=== PATIENT | male | born 1955 ===

== ENCOUNTER 2017-10-14 07:14 | Emergency (ER) | payer OTHER ==
[2017-10-14 07:14] VITALS: BMI 22.2
[2017-10-14] MEDS ORDERED: Acetaminophen-Codeine 300/30 mg Tab PO STA (08:21)
[2017-10-14] MEDS ORDERED: Tmp-Smz 800 mg-160 mg DS Tab PO STA (08:24)
[2017-10-14] MEDS ORDERED: Acetaminophen-Codeine 300/30 mg Tab PO ONE (08:27)
[2017-10-14] MEDS ORDERED: Tmp-Smz 800 mg-160 mg DS Tab ONE (08:28)
[2017-10-14] MEDS ORDERED: Tmp-Smz 800 mg-160 mg DS Tab PO SCH (08:30)
--- NOTE | 2017-10-14 08:39 | C.PDOC ---
History Of Present Illness 62 y/o male with PMHx of DM, HTN, BPH and hypothyroidism presents to ED with complaints of itching rash and tenderness to right scalp area for 3 days. Patient states rash developed first and after scratching, area became swollen and irritated, reports he took Ibuprofen with no relief. Patient reports constant pain and denies nausea, vomiting, fever o any other complaints at this time. Time Seen by Provider: 10/14/17 08:04 Chief Complaint (Nursing): Headache History Per: Patient History/Exam Limitations: no limitations Onset/Duration Of Symptoms: Days Current Symptoms Are (Timing): Still Present Past Medical History Reviewed: Historical Data, Nursing Documentation, Vital Signs Vital Signs: Last Vital Signs Temp 97.8 F 10/14/17 08:59 Pulse 65 10/14/17 08:59 Resp 18 10/14/17 08:59 BP 144/78 10/14/17 08:59 Pulse Ox 99 10/14/17 08:59 - Medical History PMH: Anemia, Diabetes, HTN, Hypercholesterolemia, Hypothyroidism Surgical History: No Surg Hx - [facility] Procedures COLONOSCOPY (07/28/14) Family History: States: No Known Family Hx - Social History Hx Tobacco Use: No Hx Alcohol Use: No Hx Substance Use: No - Immunization History Hx Tetanus Toxoid Vaccination: No Hx Influenza Vaccination: No Hx Pneumococcal Vaccination: No Review Of Systems Constitutional: Negative for: Fever, Chills Gastrointestinal: Negative for: Nausea, Vomiting Skin: Positive for: Rash Neurological: Negative for: Weakness, Numbness Physical Exam - Physical Exam Appears: Non-toxic, No Acute Distress Skin: Warm, Dry Head: Tenderness (to right scalp), Swelling (mild to Right parietal region) Eye(s): bilateral: Normal Inspection Oral Mucosa: Moist Neck: Normal ROM, Supple Cardiovascular: Rhythm Regular Respiratory: Normal Breath Sounds, No Rales, No Rhonchi, No Wheezing Gastrointestinal/Abdominal: Soft, No Tenderness, No Guarding, No Rebound Extremity: Normal ROM, Capillary Refill (<2 seconds) Neurological/Psych: Oriented x3 ED Course And Treatment O2 Sat by Pulse Oximetry: 100 (RA) Pulse Ox Interpretation: Normal Medical Decision Making Medical Decision Making: Assessment: Cellulites Disposition Counseled Patient/Family Regarding: Diagnosis, Need For Followup - Disposition Referrals: Zenon Rivas MD [Staff Provider] - Disposition: HOME/ ROUTINE Disposition Time: 08:38 Condition: FAIR Additional Instructions: follow up with your doctor in 2 days call to make an appointment take medications as prescribed return to ER if symptoms worsens or progress Prescriptions: Acetaminophen/Codeine [Tylenol/Codeine 300 MG/30 MG] 1 tab PO Q6H PRN #12 tab PRN Reason: Pain, Severe (8-10) Cephalexin [Keflex] 500 mg PO QID #40 capsule Sulfamethoxazole/Trimethoprim [Bactrim DS 800 mg-160 mg] 1 tab PO BID #14 tab Instructions: Cellulitis (ED) Forms: [facility] (Georgian), General Discharge Instructions - Clinical Impression Clinical Impression: Cellulitis - Scribe Statement The provider has reviewed the documentation as recorded by the Maricruzibsarahy Bright All medical record entries made by the Leonel were at my direction and personally dictated by me. I have reviewed the chart and agree that the record accurately reflects my personal performance of the history, physical exam, medical decision making, and the department course for this patient. I have also personally directed, reviewed, and agree with the discharge instructions and disposition.
[2017-10-14 09:01] VITALS: BP 144/78; PULSE 65; RESP 18; TEMP 97.8
[2017-10-14 09:41] VITALS: O2SAT 100
== END 2017-10-14 09:00 | disposition home or self-care (01) ==
LOC: C.ER 07:14
DX: L03.811 Cellulitis of head [any part, except face] (principal); E11.9 Type 2 diabetes mellitus without complications

== ENCOUNTER 2017-10-16 05:59 | Emergency (ER) | payer OTHER ==
[2017-10-16 05:59] VITALS: BMI 22.2
[2017-10-16 06:23] VITALS: O2SAT 100
--- NOTE | 2017-10-16 08:19 | C.PDOC ---
History Of Present Illness 62 yo male w/PMHx of NIDDM come in for re-evaluation of painful lesions to scalp gradually developed for past 1 week. Pt sts, was seen here few days ago when received Rx: Keflex, Bactrim, Tylenol #3 w/o significant improvement in sx. Pt mostly c/o throbbing pain over the lesions, " unable to sleep". Otherwise , pt denies fever, chills, previous hx of head trauma, denies dizziness, visual changes, focal deficits, neck pain, CP, SOB, dyspnea, diaphoresis, palpitation, abd. pain, N/V, denies weakness, sensory or vascular deficits to B/L UEs and LE. Ambulate to Ed for evaluation, not in nay apparent distress. Time Seen by Provider: 10/16/17 07:14 Chief Complaint (Nursing): Abnormal Skin Integrity History Per: Patient Past Medical History Reviewed: Historical Data, Nursing Documentation, Vital Signs Vital Signs: Last Vital Signs Temp 97.8 F 10/16/17 06:13 Pulse 79 10/16/17 06:13 Resp 20 10/16/17 06:13 BP 161/68 H 10/16/17 06:13 Pulse Ox 100 10/16/17 09:29 - Medical History PMH: Anemia, Diabetes, HTN, Hypercholesterolemia, Hypothyroidism Denies: Chronic Kidney Disease - [facility] Procedures COLONOSCOPY (07/28/14) Family History: States: Unknown Family Hx - Social History Hx Tobacco Use: No Hx Alcohol Use: No Hx Substance Use: No - Immunization History Hx Tetanus Toxoid Vaccination: No Hx Influenza Vaccination: No Hx Pneumococcal Vaccination: No Review Of Systems Except As Marked, All Systems Reviewed And Found Negative. Constitutional: Negative for: Fever, Chills Eyes: Negative for: Vision Change ENT: Negative for: Ear Discharge, Nose Discharge Cardiovascular: Negative for: Chest Pain, Palpitations, Light Headedness Respiratory: Negative for: Cough Gastrointestinal: Negative for: Nausea, Vomiting, Abdominal Pain, Diarrhea Genitourinary: Negative for: Incontinence Musculoskeletal: Negative for: Neck Pain, Back Pain Skin: Positive for: Lesions Neurological: Positive for: Headache. Negative for: Weakness, Numbness, Altered Mental Status, Dizziness Physical Exam - Physical Exam Appears: Well, Non-toxic, No Acute Distress Skin: Normal Color, Warm, Dry Head: Normacephalic, Other (Right parietal scalp small 1cm diameter erosive lesionsassocaited with mild scalp erythema and edema, No discharges, no flactulance.) Eye(s): bilateral: PERRL Ear(s): Bilateral: Normal Nose: No Flaring, No Discharge Oral Mucosa: Moist, No Drooling Tongue: Normal Appearing Lips: Normal Appearing Gingiva: Normal Appearing Throat: No Erythema, No Drooling Neck: Trachea Midline, Supple Cardiovascular: Rhythm Regular, No Murmur, No JVD Respiratory: No Decreased Breath Sounds, No Accessory Muscle Use, No Stridor, No Wheezing Gastrointestinal/Abdominal: Soft, No Tenderness Back: No CVA Tenderness Extremity: Normal ROM, No Pedal Edema, No Deformity Neurological/Psych: Oriented x3, Normal Speech, Normal Cognition, Normal Motor, Normal Sensation, Normal Reflexes ED Course And Treatment - Laboratory Results Result Diagrams: 10/16/17 08:59 10/16/17 08:59 Lab Interpretation: Normal O2 Sat by Pulse Oximetry: 100 (RA) Pulse Ox Interpretation: Normal - CT Scan/US CT - Head Other Rad Studies (CT/US): Read By Radiologist, Radiology Report Reviewed CT/US Interpretation: PROCEDURE: CT HEAD WITHOUT CONTRAST. HISTORY: headache , scalp lesions. COMPARISON: None available. TECHNIQUE: Axial computed tomography images were obtained through the head/brain without intravenous contrast. Radiation dose: Total exam DLP = 865 mGy-cm. This CT exam was performed using one or more of the following dose reduction techniques: Automated exposure control, adjustment of the mA and/or kV according to patient size, and/or use of iterative reconstruction technique. FINDINGS: HEMORRHAGE: No intracranial hemorrhage. BRAIN: No mass effect or edema. No atrophy or chronic microvascular ischemic changes. VENTRICLES: Unremarkable. No hydrocephalus. CALVARIUM: Where patient's area of right tank cleaner lesions are denoted by BBs, there is asymmetrical mild right scalp musculature prominence and minimal asymmetrical right dermal thickening -findings are nonspecific. No fluid like masses. Small concomitant right sebaceous cysts here not excluded - correlation with this physical exam recommended. The sub J calvarium here and elsewhere is intact. PARANASAL SINUSES: Right sphenoid sinus retention cyst. MASTOID AIR CELLS: Unremarkable as visualized. No inflammatory changes. OTHER FINDINGS: None. IMPRESSION: No intracranial pathology. . Incidental right sphenoid sinus retention cyst. Where patient's area of right scalp lesions are denoted by BBs, there is asymmetrical right scalp musculature mild prominence and minimal asymmetrical right dermal thickening -findings are nonspecific. No gross fluid like masses. Small concomitant right sebaceous cysts here however are not excluded - correlation with physical exam recommended. The subjacent calvarium here and elsewhere is intact. CT head Other Rad Studies (CT/US): Radiology Report Reviewed CT/US Interpretation: PROCEDURE: CT HEAD WITHOUT CONTRAST. HISTORY: headache , scalp lesions. COMPARISON: None available. TECHNIQUE: Axial computed tomography images were obtained through the head/brain without intravenous contrast. Radiation dose: Total exam DLP = 865 mGy-cm. This CT exam was performed using one or more of the following dose reduction techniques: Automated exposure control, adjustment of the mA and/or kV according to patient size, and/or use of iterative reconstruction technique. FINDINGS: HEMORRHAGE: No intracranial hemorrhage. BRAIN: No mass effect or edema. No atrophy or chronic microvascular ischemic changes. VENTRICLES: Unremarkable. No hydrocephalus. CALVARIUM: Where patient's area of right tank cleaner lesions are denoted by BBs, there is asymmetrical mild right scalp musculature prominence and minimal asymmetrical right dermal thickening -findings are nonspecific. No fluid like masses. Small concomitant right sebaceous cysts here not excluded - correlation with this physical exam recommended. The sub J calvarium here and elsewhere is intact. PARANASAL SINUSES: Right sphenoid sinus retention cyst. MASTOID AIR CELLS: Unremarkable as visualized. No inflammatory changes. OTHER FINDINGS: None. IMPRESSION: No intracranial pathology. . Incidental right sphenoid sinus retention cyst. Where patient's area of right scalp lesions are denoted by BBs, there is asymmetrical right scalp musculature mild prominence and minimal asymmetrical right dermal thickening -findings are nonspecific. No gross fluid like masses. Small concomitant right sebaceous cysts here however are not excluded - correlation with physical exam recommended. The subjacent calvarium here and elsewhere is intact. Progress Note: On re-evaluation, pt stable, afebrile, hemodynamicaly stable. Non-toxic. head: exam c/w small superificial tender lesion, no cellulitis, no flactua;nce. neck: SUpple. ENT: (-) acute findings. neuorlogicaly intact. Blood work review and appears normal. CT head- no acute findings. Pt advised to cont. antibiotic as initiated 2 days ago and f/u with PMD nd Dermatology in 1 -2 days for re-eval. return to ED if any worsening or new changes. Disposition Counseled Patient/Family Regarding: Studies Performed, Diagnosis, Need For Followup, Rx Given - Disposition Referrals: Zenon Rivas MD [Staff Provider] - Disposition: HOME/ ROUTINE Disposition Time: 09:17 Condition: STABLE Additional Instructions: WARM COMPRESSES TO AREA 2-3 TIMES DAILY USE SHAMPOO PRESCRIBED CONTINUE ANTIBIOTIC INITIATED 2 DAYS AGO FOLLOW UP WITH DERMATOLOGY IN 2-3 DAYS FOR RE-EVALUATION. RETURN TO ED IF ANY WORSENING OR NEW CHANGES. Prescriptions: Selenium Sulfide [Selrx] 5 ml TP ONCE #1 bottle Instructions: Cyst (ED) Forms: [facility] (Bulgarian) - Clinical Impression Clinical Impression: Inflamed sebaceous cyst
--- NOTE | 2017-10-16 08:40 | CT ---
PROCEDURE: CT HEAD WITHOUT CONTRAST. HISTORY: headache, scalp lesions COMPARISON: None available. TECHNIQUE: Axial computed tomography images were obtained through the head/brain without intravenous contrast. Radiation dose: Total exam DLP = 865 mGy-cm. This CT exam was performed using one or more of the following dose reduction techniques: Automated exposure control, adjustment of the mA and/or kV according to patient size, and/or use of iterative reconstruction technique. FINDINGS: HEMORRHAGE: No intracranial hemorrhage. BRAIN: No mass effect or edema. No atrophy or chronic microvascular ischemic changes. VENTRICLES: Unremarkable. No hydrocephalus. 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 No fluid like masses. Small concomitant right sebaceous cysts here not excluded - correlation with this physical exam recommended. The sub J calvarium here and elsewhere is intact. PARANASAL SINUSES: Right sphenoid sinus retention cyst. MASTOID AIR CELLS: Unremarkable as visualized. No inflammatory changes. OTHER FINDINGS: None. IMPRESSION: No intracranial pathology. . Incidental right sphenoid sinus retention cyst. Where patient's area of right scalp lesions are denoted by BBs, there is asymmetrical right scalp musculature mild prominence and minimal asymmetrical right dermal thickening -findings are nonspecific. No gross fluid like masses. Small concomitant right sebaceous cysts here however are not excluded - correlation with physical exam recommended. The subjacent calvarium here and elsewhere is intact.
[2017-10-16 09:07] LABS: BASO # 0.1 K/uL (0.0-0.2); EOS # 0.2 K/uL (0.0-0.7); EOS % 1.9 % (0.0-4.0); HEMOGLOBIN 12.2 g/dL (12.0-18.0); LYMPH # 1.7 K/uL (1.0-4.3); LYMPH % 14.2 % (20.0-40.0); MEAN CELL VOLUME 85.7 fL (80.0-94.0); MEAN CORPUSCULAR HEMOGLOBIN 28.9 pg (27.0-31.0); MEAN CORPUSCULAR HGB CONC 33.7 g/dL (33.0-37.0); MEAN PLATELET VOLUME 9.7 fL (7.2-11.7); MONO # 0.8 K/uL (0.0-0.8); MONO % 6.6 % (0.0-10.0); NEUT % 76.3 % (50.0-75.0); NRBC % 0.2 % (0.0-2.0); RBC 4.23 Mil/uL (4.40-5.90); RED CELL DISTRIBUTION WIDTH 14.1 % (11.5-14.5); WHITE BLOOD COUNT 11.8 K/uL (4.8-10.8)
[2017-10-16 09:22] LABS: ALB/GLOB RATIO 1.1 (1.0-2.1); ALBUMIN 4.3 g/dL (3.5-5.0); ALT/SGPT 39 U/L (21-72); AST/SGOT 28 U/L (17-59); BLOOD UREA NITROGEN 13 mg/dL (9-20); CALCIUM 9.1 mg/dl (8.6-10.4); GFR AFRICAN-AMERICAN > 60; GFR NON-AFRICAN AMERICAN 51
[2017-10-16 09:37] VITALS: BP 150/70; PULSE 76; RESP 18; TEMP 98
== END 2017-10-16 09:43 | disposition home or self-care (01) ==
LOC: C.ER 05:59
DX: L72.3 Sebaceous cyst (principal); E11.9 Type 2 diabetes mellitus without complications; E78.00 Pure hypercholesterolemia, unspecified; I10 Essential (primary) hypertension; E03.9 Hypothyroidism, unspecified

== ENCOUNTER 2018-10-20 09:52 | Outpatient (CLI) | payer OTHER | END 2018-10-20 09:53 | disposition home or self-care (01) | LOC: C.RADH 09:52 | DX: I10 Essential (primary) hypertension (principal) ==

== ENCOUNTER 2019-02-09 09:34 | Outpatient (CLI) | payer OTHER | END 2019-02-09 09:35 | disposition home or self-care (01) | LOC: C.RADH 09:34 | DX: J45.21 Mild intermittent asthma with (acute) exacerbation (principal) ==